=== PATIENT | female | born 1985 | race Caucasian/White ===

== ENCOUNTER 2016-05-23 23:29 | Emergency (ER) | payer OTHER ==
[2016-05-24] MEDS ORDERED: ONDANSETRON 4 MG ORAL DISINTEGRATING TAB (S0181) As Ordered ONE (00:17)
[2016-05-24] MEDS ORDERED: traMADol 50 MG TAB As Ordered ONE (00:17)
--- NOTE | 2016-05-24 00:59 | EDDOCDS ---
Nurse's Notes [facility] Name: Nayla Pereira Age: 30 yrs Sex: Female : 1985 Arrival Date: 05/23/2016 Time: 23:29 Bed Triage 2 Private MD: Diagnosis: Internal derangement of knee Presentation: 05/23 23:37 Presenting complaint: Patient states: Rolled over in bed and "dislocated knee--I popped mcp it back in". Happened about an hour ago. Adult Sepsis Screening: The patient does not have new or worsening altered mentation. Patient's respiratory rate is less than 22. Systolic blood pressure is greater than 100. Patient has a qSOFA score of 0- Negative Sepsis Screen. Suicide/Homicide risk assessment- the patient denies having any suicidal and/or homicidal ideations and does not present with any other emotional, behavioral or mental health complaints. Status: Patient is not a resident service coordinator or dependent. Transition of care: patient was not received from another setting of care. 23:37 Acuity: JANAY Level 4 [facility] 23:37 Method Of Arrival: Walkin/Carried/Asstd [facility] Triage Assessment: 23:39 General: Appears uncomfortable, Behavior is cooperative. Pain: Location: right knee mcp Pain currently is 7 out of 10 on a pain scale. HIV screening NA for this visit Offered previously. Neurological: No deficits noted. Respiratory: Airway is patent Respiratory effort is even, unlabored. Derm: Skin is pink, warm & dry. Musculoskeletal: Circulation, motion, and sensation intact. 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 none - PMHx: none; - PSHx: wrist, left; Tubal ligation(December 25, 2011); - Social history: Smoking status: Patient states was never smoker of tobacco. No barriers to communication noted, The patient speaks fluent Bulgarian. - Family history: Not pertinent. - : The pt / caregiver states he / she is not on anticoagulants. Home medication list is obtained from the patient. - Exposure Risk Screening:: None identified. Screenin/26 00:20 Screening information is obtained from the patient. Fall risk: No risks identified. [facility] Assistance ADL's: requires no assistance with activities of daily living. Abuse/DV Screen: The patient / caregiver reports he/she is: not in a situation that causes fear, pain or injury. Nutritional screening: No deficits noted. Advance Directives: There is no active DNR order. home support is adequate. Assessment: 00:20 General: Appears uncomfortable, Behavior is cooperative. Pain: Location: right knee mcp Pain currently is 7 out of 10 on a pain scale. Neurological: No deficits noted. Respiratory: Airway is patent Respiratory effort is even, unlabored. Derm: Skin is pink, warm & dry. Musculoskeletal: Circulation, motion, and sensation intact. Vital Signs: 05/23 23:31 BP 113 / 65; Pulse 96; Resp 16; Temp 98.0(O); Pulse Ox 99% ; Weight 61.23 kg (R); lr2 Height 5 ft. 5 in. (165.10 cm) (R); Pain 7/10; 23:31 Body Mass Index 22.46 (61.23 kg, 165.10 cm) lr2 Vitals: 23:31 Log In Time: May 23, 2016 at 23:29. lr2 ED Course: 23:31 Patient visited by Kasandra Lynch. lr2 23:31 Patient moved to Waiting lr2 23:33 Patient moved to Pre RCE lr2 23:38 Triage Initiated mcp 23:40 Patient visited by Mariana Schmidt RN. mcp 23:45 Patient moved to Triage 1 [facility] 23:47 Jonatan Jerry [facility]-C [facility] ck7 23:47 Herman Hernandez DO is Attending Physician. ck7 05/24 00:05 Patient visited by Jonatan Jerry RPA-C. ck7 00:19 Patient moved to 8 [facility] [place]:21 Patient visited by Mariana Schmidt RN. mcp 00:21 The patient / caregiver is instructed regarding the plan of care and ED course. Patient mcp has correct armband on for positive identification. Bed in low position. Call light in reach. Adult w/ patient. 00:49 [facility] is Referral Physician. ck7 00:51 Patient moved to Triage 2 mcp 00:57 No IV's were initiated during this patient's visit. No procedures done that require mcp assistance. 00:58 Crutch training done. Knee immobilizer applied on right knee. Patient with positive mcp distal sensation and brisk distal capillary refill after application. Administered Medications: 00:20 Drug: traMADol 50 mg [tramadol 50 mg tablet (1 tabs)] Route: PO; mcp 00:20 Drug: Ondansetron ODT 4 mg [ondansetron 4 mg disintegrating tablet (1 tabs)] Route: PO; [facility] Order Results: There are currently no results for this order. Outcome: 00:49 Discharge ordered by Provider. ck7 00:57 Discharge Assessment: patient administered narcotics - yes. Pt provided with safe mcp discharge. The following High Risk Discharge criteria are identified: None. Discharged to home ambulatory, with crutches. Condition: stable. Discharge instructions given to patient, Instructed on discharge instructions, follow up and referral plans. medication usage, crutch walking, Demonstrated understanding of instructions, crutch walking, medications, Pt was receptive of discharge instructions/ teaching. Prescriptions given X 3. No special radiology studies were completed. Property sent home with patient. 00:58 Patient left the ED. [facility] Signatures: Saray Frederick RN RN km Mariana Schmidt RN RN mcp Kwaczala, Christopher, ABIOLA-C RPA-Cck7 Kasandra Lynch2 KATLYN
--- NOTE | 2016-05-24 00:59 | EDDOCDS ---
Physician Documentation [facility] Name: Nayla Pereira Age: 30 yrs Sex: Female : 1985 Arrival Date: 05/23/2016 Time: 23:29 Bed Triage 2 Private MD: Disposition: 05/24/16 00:49 Discharged to Home/Self Care. Impression: Internal derangement of knee. - Condition is Stable. - Discharge Instructions: Knee Pain. - Prescriptions for Ultram 50 mg Oral Tablet - take 1 tablet by ORAL route every [address] CHUNG MDD: 4 tabs; 20 tablet. ZOFRAN ODT 4 mg - dissolve 1 tablet by ORAL route 4 times per day As needed do not chew, do not swallow whole; 10 tablet. Ibuprofen 600 mg Oral Tablet - take 1 tablet by ORAL route every 6 hours As needed take with food; 30 tablet. - Medication Reconciliation, Local Pharmacy Hours form. - Follow up: [facility]; When: 2 - 3 days; Reason: Recheck today's complaints, Continuance of care. - Problem is new. - Symptoms have improved. - Notes: USE MEDICATIONS INSTRUTCED, FOLLOW UP WITH YOUR DOCTOR, RETURN TO THE ER IF THE SYMPTOMS WORSEN OR BECOME CONCERNING Historical: - Allergies: Codeine Sulfate; - Home Meds: 1. none - PMHx: none; - PSHx: wrist, left; Tubal ligation(December 25, 2011); - Social history: Smoking status: Patient states was never smoker of tobacco. No barriers to communication noted, The patient speaks fluent Kiswahili. - Family history: Not pertinent. - : The pt / caregiver states he / she is not on anticoagulants. Home medication list is obtained from the patient. - Exposure Risk Screening:: None identified. LPC: 05/23 23:39 4, Living 3, LMP 05/03/2016 [facility] Vital Signs: 23:31 BP 113 / 65; Pulse 96; Resp 16; Temp 98.0(O); Pulse Ox 99% ; Weight 61.23 kg / 134.99 lr2 lbs (R); Height 5 ft. 5 in. (165.10 cm) (R); Pain 7/10; 23:31 Body Mass Index 22.46 (61.23 kg, 165.10 cm) lr2 Procedures: 05/24 00:53 Fracture care/splinting: Splint applied to right leg using knee immobilizer, applied by ck7 nurse. Examined by me, post splint application: neurovascular intact, 2+ distal pulses palpable, brisk capillary refill noted, Patient tolerated well. MDM: 00:11 traMADol 50 mg PO once ordered. ck7 00:11 Ondansetron ODT Oral Disintegrating Tablet 4 mg PO once ordered. ck7 00:12 Knee, Complete Ordered. EDMS 00:49 Knee Immobilizer ordered. ck7 00:49 Crutches ordered. ck7 Administered Medications: 00:20 Drug: traMADol 50 mg [tramadol 50 mg tablet (1 tabs)] Route: PO; [facility] 00:20 Drug: Ondansetron ODT 4 mg [ondansetron 4 mg disintegrating tablet (1 tabs)] Route: PO; [facility] Signatures: Dispatcher [employer] Mariana Tracey RN RN Jonatan Ontiveros, RPA-C RPA-Cck7 KATLYN
--- NOTE | 2016-05-24 07:20 | REP ---
Clinical: Trauma. Deformity and swelling Technique: AP, lateral, bilateral oblique views of the right knee . Findings: The osseous structures and joint spaces are intact and normal. There is no evidence for acute fracture or dislocation. No joint effusion is appreciated. Surrounding soft tissues are unremarkable. No subcutaneous emphysema or radiodense foreign body. Impression: Normal examination. No acute fracture or dislocation. Signed by Charly Laguerre MD 05/24/2016 07:11 A
--- NOTE | 2016-05-26 01:59 | EDDOCDS ---
Physician Documentation [facility] Name: Nayla Pereira Age: 30 yrs Sex: Female : 1985 Arrival Date: 05/23/2016 Time: 23:29 Bed Triage 2 Private MD: Disposition: 05/24/16 00:49 Discharged to Home/Self Care. Impression: Internal derangement of knee. - Condition is Stable. - Discharge Instructions: Knee Pain. - Prescriptions for Ultram 50 mg Oral Tablet - take 1 tablet by ORAL route every [address] CHUNG MDD: 4 tabs; 20 tablet. ZOFRAN ODT 4 mg - dissolve 1 tablet by ORAL route 4 times per day As needed do not chew, do not swallow whole; 10 tablet. Ibuprofen 600 mg Oral Tablet - take 1 tablet by ORAL route every 6 hours As needed take with food; 30 tablet. - Medication Reconciliation, Local Pharmacy Hours form. - Follow up: [facility]; When: 2 - 3 days; Reason: Recheck today's complaints, Continuance of care. - Problem is new. - Symptoms have improved. - Notes: USE MEDICATIONS INSTRUTCED, FOLLOW UP WITH YOUR DOCTOR, RETURN TO THE ER IF THE SYMPTOMS WORSEN OR BECOME CONCERNING Historical: - Allergies: Codeine Sulfate; - Home Meds: 1. none - PMHx: none; - PSHx: wrist, left; Tubal ligation(December 25, 2011); - Social history: Smoking status: Patient states was never smoker of tobacco. No barriers to communication noted, The patient speaks fluent Greenlandic. - Family history: Not pertinent. - : The pt / caregiver states he / she is not on anticoagulants. Home medication list is obtained from the patient. - Exposure Risk Screening:: None identified. 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 5 in. (165.10 cm) (R); Pain 7/10; 23:31 Body Mass Index 22.46 (61.23 kg, 165.10 cm) lr2 Procedures: 05/24 00:53 Fracture care/splinting: Splint applied to right leg using knee immobilizer, applied by ck7 nurse. Examined by me, post splint application: neurovascular intact, 2+ distal pulses palpable, brisk capillary refill noted, Patient tolerated well. MDM: 00:11 traMADol 50 mg PO once ordered. ck7 00:11 Ondansetron ODT Oral Disintegrating Tablet 4 mg PO once ordered. ck7 00:12 Knee, Complete Ordered. EDMS 00:49 Knee Immobilizer ordered. ck7 00:49 Crutches ordered. ck7 02:31 [facility] Payment Agreement was scanned into [email or web address] and attached to record. hs2 09:21 T-Sheet-- Draft Copy was scanned into [email or web address] and attached to record. [facility] Administered Medications: 00:20 Drug: traMADol 50 mg [tramadol 50 mg tablet (1 tabs)] Route: PO; mcp 00:20 Drug: Ondansetron ODT 4 mg [ondansetron 4 mg disintegrating tablet (1 tabs)] Route: PO; [facility] Signatures: Dispatcher [employer] EDUT Mariana Schmidt RN RN mcp Jonatan Jerry, RPA-C RPA-Cck7 Josefina Engle, Reg Reg hs2 Faye Dawson [facility] The chart was reviewed and I authenticate all verbal orders and agree with the evaluation and treatment provided.Attachments: 02:31 [facility] Payment Agreement hs2 09:21 T-Sheet-- Draft Copy [facility] Chart Complete MTDD
--- NOTE | 2016-05-26 01:59 | EDDOCDS ---
Nurse's Notes [facility] Name: Nayla Pereira Age: 30 yrs Sex: Female : 1985 Arrival Date: 05/23/2016 Time: 23:29 Bed Triage 2 Private MD: Diagnosis: Internal derangement of knee Presentation: 05/23 23:37 Presenting complaint: Patient states: Rolled over in bed and "dislocated knee--I popped mcp it back in". Happened about an hour ago. Adult Sepsis Screening: The patient does not have new or worsening altered mentation. Patient's respiratory rate is less than 22. Systolic blood pressure is greater than 100. Patient has a qSOFA score of 0- Negative Sepsis Screen. Suicide/Homicide risk assessment- the patient denies having any suicidal and/or homicidal ideations and does not present with any other emotional, behavioral or mental health complaints. Status: Patient is not a account service representative or dependent. Transition of care: patient was not received from another setting of care. 23:37 Acuity: JANAY Level 4 [facility] 23:37 Method Of Arrival: Walkin/Carried/Asstd [facility] Triage Assessment: 23:39 General: Appears uncomfortable, Behavior is cooperative. Pain: Location: right knee mcp Pain currently is 7 out of 10 on a pain scale. HIV screening NA for this visit Offered previously. Neurological: No deficits noted. Respiratory: Airway is patent Respiratory effort is even, unlabored. Derm: Skin is pink, warm & dry. Musculoskeletal: Circulation, motion, and sensation intact. 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 none - PMHx: none; - PSHx: wrist, left; Tubal ligation(December 25, 2011); - Social history: Smoking status: Patient states was never smoker of tobacco. No barriers to communication noted, The patient speaks fluent Tajik. - Family history: Not pertinent. - : The pt / caregiver states he / she is not on anticoagulants. Home medication list is obtained from the patient. - Exposure Risk Screening:: None identified. Screenin/26 00:20 Screening information is obtained from the patient. Fall risk: No risks identified. [facility] Assistance ADL's: requires no assistance with activities of daily living. Abuse/DV Screen: The patient / caregiver reports he/she is: not in a situation that causes fear, pain or injury. Nutritional screening: No deficits noted. Advance Directives: There is no active DNR order. home support is adequate. Assessment: 00:20 General: Appears uncomfortable, Behavior is cooperative. Pain: Location: right knee mcp Pain currently is 7 out of 10 on a pain scale. Neurological: No deficits noted. Respiratory: Airway is patent Respiratory effort is even, unlabored. Derm: Skin is pink, warm & dry. Musculoskeletal: Circulation, motion, and sensation intact. Vital Signs: 05/23 23:31 BP 113 / 65; Pulse 96; Resp 16; Temp 98.0(O); Pulse Ox 99% ; Weight 61.23 kg (R); lr2 Height 5 ft. 5 in. (165.10 cm) (R); Pain 7/10; 23:31 Body Mass Index 22.46 (61.23 kg, 165.10 cm) lr2 Vitals: 23:31 Log In Time: May 23, 2016 at 23:29. lr2 ED Course: 23:31 Patient visited by Kasandra Lynch. lr2 23:31 Patient moved to Waiting lr2 23:33 Patient moved to Pre RCE lr2 23:38 Triage Initiated mcp 23:40 Patient visited by Mariana Schmidt RN. mcp 23:45 Patient moved to Triage 1 [facility] 23:47 Jonatan Jerry RPA-C is [facility]. ck7 23:47 Herman Hernandez DO is Attending Physician. ck7 05/24 00:05 Patient visited by Jonatan Jerry RPA-C. ck7 00:19 Patient moved to TR8 [facility] 00:21 Patient visited by Mariana Schmidt RN. mcp 00:21 The patient / caregiver is instructed regarding the plan of care and ED course. Patient mcp has correct armband on for positive identification. Bed in low position. Call light in reach. Adult w/ patient. 00:49 [facility] is Referral Physician. ck7 00:51 Patient moved to Triage 2 mcp 00:57 No IV's were initiated during this patient's visit. No procedures done that require mcp assistance. 00:58 Crutch training done. Knee immobilizer applied on right knee. Patient with positive mcp distal sensation and brisk distal capillary refill after application. 02:31 [facility] Payment Agreement was scanned into [employer] and attached to record. hs2 02:37 Patient name changed from Nayla\\S\\\\S\\Kelli\\S\\ to Nayla\\S\\Leatha\\S\\Kelli. EDMS 07:30 Knee, Complete Returned. EDMS 09:21 T-Sheet-- Draft Copy was scanned into [employer] and attached to record. [facility] Administered Medications: 00:20 Drug: traMADol 50 mg [tramadol 50 mg tablet (1 tabs)] Route: PO; mcp 00:20 Drug: Ondansetron ODT 4 mg [ondansetron 4 mg disintegrating tablet (1 tabs)] Route: PO; [facility] Order Results: Radiology Order: Knee, Complete Test: Knee, Complete REASON FOR EXAMINATION: Deformity/Swelling; Clinical: Trauma. Deformity and swelling; ; Technique: AP, lateral, bilateral oblique views of the right knee .; ; Findings: The osseous structures and joint spaces are intact and normal. There; is no evidence for acute fracture or dislocation. No joint effusion is; appreciated. Surrounding soft tissues are unremarkable. No subcutaneous; emphysema or radiodense foreign body.; ; Impression:; Normal examination. No acute fracture or dislocation.; ; ; Signed by; Charly Laguerre MD 05/24/2016 07:11 A; Outcome: 00:49 Discharge ordered by Provider. ck7 00:57 Discharge Assessment: patient administered narcotics - yes. Pt provided with safe mcp discharge. The following High Risk Discharge criteria are identified: None. Discharged to home ambulatory, with crutches. Condition: stable. Discharge instructions given to patient, Instructed on discharge instructions, follow up and referral plans. medication usage, crutch walking, Demonstrated understanding of instructions, crutch walking, medications, Pt was receptive of discharge instructions/ teaching. Prescriptions given X 3. No special radiology studies were completed. Property sent home with patient. 00:58 Patient left the ED. [facility] Signatures: Dispatcher [employer] EDKY Saray Frederick RN RN kmMariana Denney RN RN mcp Kwaczala, Christopher, ABIOLA-C RPA-Cck7 Josefina Engle, Reg Reg hs2 Faye Dawson Laura lr2 Chart Complete MTDD
--- NOTE | 2016-05-26 01:59 | EDDOCDS ---
Physician Documentation Name: Nayla Pereira Age: 30 yrs Sex: Female : 1985 Arrival Date: 05/23/2016 Time: 23:29 Bed Triage 2 Private MD: Disposition: 05/24/16 00:49 Discharged to Home/Self Care. Impression: Internal derangement of knee. - Condition is Stable. - Discharge Instructions: Knee Pain. - Prescriptions for Ultram 50 mg Oral Tablet - take 1 tablet by ORAL route every [address] CHUNG MDD: 4 tabs; 20 tablet. ZOFRAN ODT 4 mg - dissolve 1 tablet by ORAL route 4 times per day As needed do not chew, do not swallow whole; 10 tablet. Ibuprofen 600 mg Oral Tablet - take 1 tablet by ORAL route every 6 hours As needed take with food; 30 tablet. - Medication Reconciliation, Local Pharmacy Hours form. - Follow up: [facility]; When: 2 - 3 days; Reason: Recheck today's complaints, Continuance of care. - Problem is new. - Symptoms have improved. - Notes: USE MEDICATIONS INSTRUTCED, FOLLOW UP WITH YOUR DOCTOR, RETURN TO THE ER IF THE SYMPTOMS WORSEN OR BECOME CONCERNING Historical: - Allergies: Codeine Sulfate; - Home Meds: 1. none - PMHx: none; - PSHx: wrist, left; Tubal ligation(December 25, 2011); - Social history: Smoking status: Patient states was never smoker of tobacco. No barriers to communication noted, The patient speaks fluent Latvian. - Family history: Not pertinent. - : The pt / caregiver states he / she is not on anticoagulants. Home medication list is obtained from the patient. - Exposure Risk Screening:: None identified. 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 Vital Signs: 23:31 BP 113 / 65; Pulse 96; Resp 16; Temp 98.0(O); Pulse Ox 99% ; Weight 61.23 kg / 134.99 lr2 lbs (R); Height 5 ft. 5 in. (165.10 cm) (R); Pain 7/10; 23:31 Body Mass Index 22.46 (61.23 kg, 165.10 cm) lr2 Procedures: 05/24 00:53 Fracture care/splinting: Splint applied to right leg using knee immobilizer, applied by ck7 nurse. Examined by me, post splint application: neurovascular intact, 2+ distal pulses palpable, brisk capillary refill noted, Patient tolerated well. MDM: 00:11 traMADol 50 mg PO once ordered. ck7 00:11 Ondansetron ODT Oral Disintegrating Tablet 4 mg PO once ordered. ck7 00:12 Knee, Complete Ordered. EDMS 00:49 Knee Immobilizer ordered. ck7 00:49 Crutches ordered. ck7 02:31 [facility] Payment Agreement was scanned into [employer] and attached to record. hs2 09:21 T-Sheet-- Draft Copy was scanned into [employer] and attached to record. [facility] Administered Medications: 00:20 Drug: traMADol 50 mg [tramadol 50 mg tablet (1 tabs)] Route: PO; mcp 00:20 Drug: Ondansetron ODT 4 mg [ondansetron 4 mg disintegrating tablet (1 tabs)] Route: PO; [facility] Signatures: Dispatcher [employer] EDKS Mariana Schmidt RN RN mcp Jonatan Jerry, RPA-C RPA-Cck7 Josefina Engle, Reg Reg hs2 Faye Dawson [facility] The chart was reviewed and I authenticate all verbal orders and agree with the evaluation and treatment provided.Attachments: 02:31 [facility] Payment Agreement hs2 09:21 T-Sheet-- Draft Copy [facility] Chart Complete MTDD
== END 2016-05-24 00:58 | disposition home or self-care (01) ==
LOC: M ED 23:29
DX: M23.91 Unspecified internal derangement of right knee (principal); Z88.2 Allergy status to sulfonamides; Z88.5 Allergy status to narcotic agent

== ENCOUNTER 2016-07-27 17:16 | Emergency (ER) | payer OTHER, SELFPAY ==
[~2016-07-27] VITALS: Ht 165.1 cm; Wt 61.2 kg
[2016-07-27 17:16] VITALS: BP 128/97
[2016-07-27] MEDS ORDERED: IBUP200C PO (17:28)
[2016-07-27] MEDS ORDERED: AMOX875T PO (17:51)
[2016-07-27] MEDS ORDERED: IBUP600T26 PO (17:51)
[2016-07-27] MEDS ORDERED: ULTR50TA PO (17:51)
== END 2016-07-27 18:14 | disposition home or self-care (01) ==
LOC: M ED 17:57
DX: K02.9 Dental caries, unspecified (principal); Z88.5 Allergy status to narcotic agent

== ENCOUNTER → 2017-05-30 | Outpatient (REF) | payer OTHER | LOC: M SFHCLERA 17:00 | DX: J02.9 Acute pharyngitis, unspecified (principal) ==

== ENCOUNTER 2017-08-29 16:25 | Emergency (ER) | payer OTHER ==
[2017-08-29 17:12] LABS: KETONE, URINE AUTO RFX NEGATIVE (NEGATIVE); LEUKOCYTE ESTERASE UR AUTO RFX 2+ (NEGATIVE); MUCUS, URINE RFX SMALL (NEGATIVE); NITRITE, URINE AUTO RFX NEGATIVE (NEGATIVE); RBC, URINE AUTO RFX 1 /HPF (0-3); SPECIFIC GRAVITY UR AUTO RFX 1.019 (1.002-1.035); SQUAM EPITHELIAL CELL UR AURFX 6 /HPF (0-6); WBC, URINE AUTO RFX 2 /HPF (0-3)
[2017-08-29 17:25] LABS: BASO % 0.3 % (0.0-1.0); EOS # 0.1 10^3/uL (0.0-0.50); EOS % 0.8 % (0.0-3.0); HEMOGLOBIN 12.4 g/dl (12.0-15.5); IMMATURE GRANULOCYTE % 0.4 % (0-3.0); LYMPH # 1.6 10^3/uL (1.5-4.5); LYMPH % 15.2 % (24.0-44.0); MEAN CORPUSCULAR HEMOGLOBIN 30.8 pg (27.0-33.0); MEAN CORPUSCULAR HGB CONC 34.4 g/dl (32.0-36.5); MEAN CORPUSCULAR VOLUME 89.6 fl (80.0-96.0); MONO % 9.6 % (0.0-5.0); NEUTROPHILS # 7.8 10^3/uL (1.8-7.7); NEUTROPHILS % 73.7 % (36.0-66.0); PLATELET COUNT, AUTOMATED 302 10^3/uL (150-450); RED BLOOD COUNT 4.02 10^6/uL (4.00-5.40); RED CELL DISTRIBUTION WIDTH 12.3 % (11.5-14.5); WHITE BLOOD COUNT 10.6 10^3/uL (4.0-10.0)
[2017-08-29] MEDS: ONDANSETRON 4MG/2ML VIAL (J2405) IV (17:37)
[2017-08-29] MEDS: NS 1,000 ML IV (17:38)
[2017-08-29] MEDS: MORPHINE 4 MG/ML 1ML VIAL/SYRINGE (J2270) IV ×2 (17:38→18:31)
[2017-08-29 17:45] LABS: CONTROL LINE HCG INT CTR LINE PRESENT; HCG, SERUM QUALITATIVE NEGATIVE (NEGATIVE)
[2017-08-29 17:57] LABS: ALBUMIN 3.8 GM/DL (3.2-5.2); ALBUMIN/GLOBULIN RATIO 1.12 (1.00-1.93); ALKALINE PHOSPHATASE 29 U/L (45-117); ALT/SGPT 13 U/L (12-78); ANION GAP 7 MEQ/L (8-16); AST/SGOT 13 U/L (7-37); BILIRUBIN,DIRECT 0.1 MG/DL (0.0-0.2); BILIRUBIN,TOTAL 0.3 MG/DL (0.2-1.0); BLOOD UREA NITROGEN 12 MG/DL (7-18); CALCIUM LEVEL 9.1 MG/DL (8.5-10.1); CARBON DIOXIDE LEVEL 24 MEQ/L (21-32); CHLORIDE LEVEL 109 MEQ/L (98-107); CREATININE FOR GFR 0.74 MG/DL (0.55-1.30); GLOMERULAR FILTRATION RATE > 60.0 (>60); GLUCOSE, FASTING 100 MG/DL (70-100); POTASSIUM SERUM 3.9 MEQ/L (3.5-5.1); SODIUM LEVEL 140 MEQ/L (136-145); TOTAL PROTEIN 7.2 GM/DL (6.4-8.2)
[2017-08-29] MEDS ORDERED: ISOVUE-370 76% 100ML VIAL (Q9967) As Ordered (18:09)
[2017-08-29] MEDS: OXYCODONE/APAP 5MG/325MG(BULK FOR ED) 1 TABLET PO (19:57)
== END 2017-08-29 20:00 | disposition home or self-care (01) ==
LOC: M ED 16:25
DX: N83.201 Unspecified ovarian cyst, right side (principal); R11.0 Nausea; Z88.5 Allergy status to narcotic agent
CPT/HCPCS: J2270

== ENCOUNTER 2017-10-03 18:44 | Emergency (ER) | payer OTHER ==
[2017-10-03] MEDS: MORPHINE 4 MG/ML 1ML VIAL/SYRINGE (J2270) IV (19:45)
[2017-10-03] MEDS: ONDANSETRON 4MG/2ML VIAL (J2405) IV (19:45)
[2017-10-03] MEDS: CYCLOBENZAPRINE 10 MG TAB PO (21:26)
[2017-10-03] MEDS: NAPROXEN 250 MG TAB PO (21:26)
== END 2017-10-03 21:29 | disposition home or self-care (01) ==
LOC: M ED 18:44
DX: S66.912A Strain of unspecified muscle, fascia and tendon at wrist and hand level, left hand, initial encounter (principal); S33.5XXA Sprain of ligaments of lumbar spine, initial encounter; S50.02XA Contusion of left elbow, initial encounter; S60.222A Contusion of left hand, initial encounter; V86.95XA Unspecified occupant of 3- or 4- wheeled all-terrain vehicle (ATV) injured in nontraffic accident, initial encounter; Y92.9 Unspecified place or not applicable; Y93.9 Activity, unspecified; Y99.9 Unspecified external cause status; M51.9 Unspecified thoracic, thoracolumbar and lumbosacral intervertebral disc disorder; Z88.5 Allergy status to narcotic agent
CPT/HCPCS: J2270

== ENCOUNTER 2018-02-14 18:24 | Emergency (ER) | payer OTHER | END 2018-02-14 19:40 | disposition home or self-care (01) | LOC: M ED 18:24 | DX: S39.012A Strain of muscle, fascia and tendon of lower back, initial encounter (principal) | CPT/HCPCS: 99282 ==

== ENCOUNTER → 2018-03-14 | Outpatient (REF) | payer OTHER ==
[~2018-03-14] MED LIST: AMOX875T PO; CLIN150C14 PO; CYCL10TA PO; IBUP-1022 PO; IBUP200C25 PO; IBUP80TA PO; NAPR-49 PO; PERC5TAB12 PO; TYLE325T5 PO; ULTR50TA8 PO; ZOFR4TAB14 PO
== END ==
LOC: M SFHCLERA 13:53
PROVIDERS: ATTEND Physician Assistant
DX: N39.0 Urinary tract infection, site not specified (principal)

== ENCOUNTER → 2018-03-23 | Outpatient (REF) | payer OTHER ==
[~2018-03-23] MED LIST changes: -NAPR-49 PO; +NAPR-50 PO
[2018-03-23 10:23] LABS: BASO % 0.4 % (0.0-1.0); EOS # 0.4 10^3/uL (0.0-0.50); HEMATOCRIT 40.3 % (36.0-47.0); HEMOGLOBIN 13.6 g/dl (12.0-15.5); LYMPH # 2.5 10^3/uL (1.5-4.5); LYMPH % 26.5 % (24.0-44.0); MEAN CORPUSCULAR HEMOGLOBIN 30.4 pg (27.0-33.0); MEAN CORPUSCULAR HGB CONC 33.7 g/dl (32.0-36.5); MEAN CORPUSCULAR VOLUME 90.2 fl (80.0-96.0); MONO # 0.8 10^3/uL (0.0-0.8); MONO % 8.4 % (0.0-5.0); NEUTROPHILS # 5.6 10^3/uL (1.8-7.7); NEUTROPHILS % 60.3 % (36.0-66.0); PLATELET COUNT, AUTOMATED 400 10^3/uL (150-450); RED BLOOD COUNT 4.47 10^6/uL (4.00-5.40); WHITE BLOOD COUNT 9.3 10^3/uL (4.0-10.0)
[2018-03-23 10:43] LABS: ALBUMIN 4.1 GM/DL (3.2-5.2); ALT/SGPT 11 U/L (12-78); BILIRUBIN,TOTAL 0.5 MG/DL (0.2-1.0); BLOOD UREA NITROGEN 16 MG/DL (7-18); CALCIUM LEVEL 9.5 MG/DL (8.5-10.1); CARBON DIOXIDE LEVEL 26 MEQ/L (21-32); CHLORIDE LEVEL 107 MEQ/L (98-107); CHOLESTEROL LEVEL 172 MG/DL (<200); CHOLESTEROL RISK RATIO 2.492 (<5); CREATININE FOR GFR 0.85 MG/DL (0.55-1.30); FREE T4 1.17 NG/DL (0.76-1.46); GLOMERULAR FILTRATION RATE > 60.0 (>60); GLUCOSE, FASTING 83 MG/DL (70-100); HDL CHOLESTEROL 69 MG/DL (>40); LDL CHOLESTEROL 90 MG/DL (<100); NON-HDL-C 103 MG/DL; SODIUM LEVEL 140 MEQ/L (136-145); TOTAL PROTEIN 7.7 GM/DL (6.4-8.2); TRIGLYCERIDES LEVEL 65 MG/DL (<150)
== END ==
LOC: M SFHCPLAZ 08:18
PROVIDERS: ATTEND Physician Assistant Medical
DX: Z86.39 Personal history of other endocrine, nutritional and metabolic disease (principal); Z30.9 Encounter for contraceptive management, unspecified; Z13.220 Encounter for screening for lipoid disorders

== ENCOUNTER 2018-03-29 10:24 | Emergency (ER) | payer OTHER ==
[~2018-03-29] VITALS: Ht 162.6 cm; Wt 63.6 kg
[~2018-03-29 10:24] MED LIST changes: -CLIN150C14 PO; -IBUP80TA PO; -ZOFR4TAB14 PO
[2018-03-29] MEDS ORDERED: CLIN150C14 PO (11:34)
[2018-03-29] MEDS ORDERED: IBUP80TA PO (11:34)
[2018-03-29] MEDS ORDERED: ZOFR4TAB14 PO (11:34)
[2018-03-29 11:42] VITALS: BP 117/69
[2018-03-29] MEDS ORDERED: CLINDAMYCIN 150 MG CAP PO ONE (11:45)
[2018-03-29] MEDS ORDERED: ONDANSETRON 4 MG ORAL DISINTEGRATING TAB (Q0162 PER 1MG) PO ONE (11:45)
[2018-03-29] MEDS ORDERED: IBUPROFEN 800 MG TAB PO ONE (11:45)
== END 2018-03-29 11:44 | disposition home or self-care (01) ==
LOC: M ED 10:24
DX: K08.9 Disorder of teeth and supporting structures, unspecified (principal); K04.7 Periapical abscess without sinus
CPT/HCPCS: 99283; Q0162

== ENCOUNTER → 2018-05-10 | Outpatient (REF) | payer OTHER ==
[~2018-05-10] MED LIST changes: +CLIN150C14 PO; +IBUP80TA PO; +ZOFR4TAB14 PO
[2018-05-10 12:43] LABS: AMORPHOUS SEDIMENT SMALL (NEGATIVE); APPEARANCE, URINE CLOUDY (CLEAR); BACTERIA, URINE AUTO 1+ (NEGATIVE); BILIRUBIN, URINE AUTO NEGATIVE (NEGATIVE); BLOOD, URINE BLOOD 1+ (NEGATIVE); CALCIUM OXALATE CRYSTALS SMALL; COLOR, URINE YELLOW (YELLOW); GLUCOSE, URINE (UA) AUTO NEGATIVE (NEGATIVE); KETONE, URINE AUTO NEGATIVE (NEGATIVE); LEUKOCYTE ESTERASE, URINE AUTO 3+ (NEGATIVE); MUCUS, URINE LARGE (NEGATIVE); NITRITE, URINE AUTO NEGATIVE (NEGATIVE); PROTEIN, URINE AUTO 1+ mg/dL (NEGATIVE); RBC, URINE AUTO 9 /HPF (0-3); SPECIFIC GRAVITY URINE AUTO 1.019 (1.002-1.035); SQUAMOUS EPITHELIAL CELL UR AU 21 /HPF (0-6); TRANSITIONAL EPITHELIAL AUTO 1 /HPF; UROBILINOGEN, URINE AUTO 0.2 mg/dL (0.0-2.0); WBC, URINE AUTO TNTC /HPF (0-3)
== END ==
LOC: M SFHCPLAZ 11:44
PROVIDERS: ATTEND Physician Assistant Medical
DX: N39.0 Urinary tract infection, site not specified (principal)

== ENCOUNTER → 2018-09-06 | Outpatient (REF) | payer OTHER ==
[~2018-09-06] MED LIST changes: -NAPR-50 PO; +NAPR-837 PO
[2018-09-06 14:23] LABS: FREE T4 0.94 NG/DL (0.76-1.46); THYROID STIMULATING HORMONE 0.563 uIU/ML (0.358-3.740)
== END ==
LOC: M SFHCPLAZ 09:24
PROVIDERS: ATTEND Physician Assistant Medical
DX: Z86.39 Personal history of other endocrine, nutritional and metabolic disease (principal)

== ENCOUNTER → 2020-04-18 | Outpatient (REF) | payer OTHER ==
[~2020-04-18] MED LIST changes: -CLIN150C14 PO; +CLIN150C15 PO; +CYCL-707 PO; -CYCL10TA PO
[2020-04-18 15:17] LABS: BASO % 0.4 % (0.0-1.0); EOS # 0.1 10^3/uL (0.0-0.5); EOS % 1.8 % (0.0-3.0); HEMOGLOBIN 12.8 g/dl (12.0-15.5); LYMPH # 2.1 10^3/uL (1.5-5.0); MEAN CORPUSCULAR HEMOGLOBIN 30.5 pg (27.0-33.0); MEAN CORPUSCULAR HGB CONC 32.8 g/dl (32.0-36.5); MEAN CORPUSCULAR VOLUME 92.9 fl (80.0-96.0); MONO # 0.5 10^3/uL (0.0-0.8); MONO % 7.2 % (0.0-5.0); NEUTROPHILS % 59.3 % (36.0-66.0); PLATELET COUNT, AUTOMATED 369 10^3/uL (150-450); WHITE BLOOD COUNT 6.8 10^3/uL (4.0-10.0)
[2020-04-18 16:02] LABS: ALBUMIN 4.1 GM/DL (3.2-5.2); ALT/SGPT 16 U/L (12-78); BILIRUBIN,TOTAL 0.3 MG/DL (0.2-1.0); BLOOD UREA NITROGEN 12 MG/DL (7-18); CALCIUM LEVEL 9.7 MG/DL (8.5-10.1); CARBON DIOXIDE LEVEL 28 MEQ/L (21-32); CHLORIDE LEVEL 106 MEQ/L (98-107); CHOLESTEROL LEVEL 175 MG/DL (<200); CHOLESTEROL RISK RATIO 2.083 (<5); CREATININE FOR GFR 0.81 MG/DL (0.55-1.30); FREE T4 0.82 NG/DL (0.76-1.46); GLOMERULAR FILTRATION RATE > 60.0 (>60); GLUCOSE, FASTING 93 MG/DL (70-100); HDL CHOLESTEROL 84 MG/DL (>40); LDL CHOLESTEROL 75 MG/DL (<100); NON-HDL-C 91 MG/DL; POTASSIUM SERUM 3.9 MEQ/L (3.5-5.1); SODIUM LEVEL 141 MEQ/L (136-145); TOTAL PROTEIN 7.1 GM/DL (6.4-8.2); TRIGLYCERIDES LEVEL 82 MG/DL (<150)
== END ==
LOC: M SFHCPLAZ 13:40
PROVIDERS: ATTEND Physician Assistant Medical
DX: Z13.220 Encounter for screening for lipoid disorders (principal); Z86.39 Personal history of other endocrine, nutritional and metabolic disease; Z30.9 Encounter for contraceptive management, unspecified

== ENCOUNTER → 2020-08-14 | Outpatient (REF) | payer OTHER ==
[2020-08-14 17:34] LABS: APPEARANCE, URINE HAZY (CLEAR); BACTERIA, URINE AUTO 1+ (NEGATIVE); BILIRUBIN, URINE AUTO NEGATIVE (NEGATIVE); BLOOD, URINE BLOOD NEGATIVE (NEGATIVE); GLUCOSE, URINE (UA) AUTO NEGATIVE (NEGATIVE); KETONE, URINE AUTO NEGATIVE (NEGATIVE); LEUKOCYTE ESTERASE, URINE AUTO 3+ (NEGATIVE); MUCUS, URINE SMALL (NEGATIVE); NITRITE, URINE AUTO POSITIVE (NEGATIVE); PROTEIN, URINE AUTO NEGATIVE (NEGATIVE); RBC, URINE AUTO 2 /HPF (0-3); SPECIFIC GRAVITY URINE AUTO 1.015 (1.002-1.035); SQUAMOUS EPITHELIAL CELL UR AU 1 /HPF (0-6); WBC, URINE AUTO 50 /HPF (0-3)
[2020-08-14 17:41] LABS: COLOR, URINE DK YELLOW (YELLOW)
== END ==
LOC: M SFHCPLAZ 16:39
PROVIDERS: ATTEND Nurse Practitioner Family
DX: N39.0 Urinary tract infection, site not specified (principal)

== ENCOUNTER → 2021-08-01 | Outpatient (REF) | payer OTHER ==
[~2021-08-01] MED LIST changes: -CLIN150C15 PO; +CLIN150C17 PO
== END ==
LOC: M SFHCPLAZ 12:48
PROVIDERS: ATTEND Physician Assistant
DX: R30.0 Dysuria (principal)

== ENCOUNTER → 2022-01-27 | Outpatient (REF) | payer OTHER | LOC: M SFHCPLAZ 17:18 | PROVIDERS: ATTEND Physician Assistant | DX: R09.89 Other specified symptoms and signs involving the circulatory and respiratory systems (principal) ==

== ENCOUNTER → 2022-02-03 | Outpatient (REF) | payer OTHER ==
[2022-02-03 16:24] LABS: BASO % 0.5 % (0.0-1.0); EOS # 0.1 10^3/uL (0.0-0.5); EOS % 1.3 % (0.0-3.0); HEMOGLOBIN 11.2 g/dl (12.0-15.5); LYMPH # 2.7 10^3/uL (1.5-5.0); LYMPH % 32.6 % (24.0-44.0); MEAN CORPUSCULAR HEMOGLOBIN 30.4 pg (27.0-33.0); MEAN CORPUSCULAR HGB CONC 32.9 g/dl (32.0-36.5); MEAN CORPUSCULAR VOLUME 92.4 fl (80.0-96.0); MONO # 0.5 10^3/uL (0.0-0.8); MONO % 5.8 % (2.0-8.0); NEUTROPHILS # 4.9 10^3/uL (1.5-8.5); NEUTROPHILS % 59.6 % (36.0-66.0); PLATELET COUNT, AUTOMATED 386 10^3/uL (150-450); RED BLOOD COUNT 3.68 10^6/uL (4.00-5.40); WHITE BLOOD COUNT 8.2 10^3/uL (4.0-10.0)
[2022-02-03 17:24] LABS: ALT/SGPT 15 U/L (12-78); BILIRUBIN,TOTAL 0.3 MG/DL (0.2-1.0); BLOOD UREA NITROGEN 11 MG/DL (7-18); CALCIUM LEVEL 9.3 MG/DL (8.5-10.1); CARBON DIOXIDE LEVEL 24 MEQ/L (21-32); CHLORIDE LEVEL 107 MEQ/L (98-107); CHOLESTEROL LEVEL 150 MG/DL (<200); CHOLESTEROL RISK RATIO 2.238 (<5); CREATININE FOR GFR 0.79 MG/DL (0.55-1.30); FREE T4 1.05 NG/DL (0.76-1.46); GLOMERULAR FILTRATION RATE > 60.0 (>60); GLUCOSE, FASTING 102 MG/DL (70-100); HDL CHOLESTEROL 67 MG/DL (>40); LDL CHOLESTEROL 69 MG/DL (<100); NON-HDL-C 83 MG/DL; POTASSIUM SERUM 3.8 MEQ/L (3.5-5.1); SODIUM LEVEL 140 MEQ/L (136-145); TOTAL PROTEIN 7.1 GM/DL (6.4-8.2); TRIGLYCERIDES LEVEL 72 MG/DL (<150)
== END ==
LOC: M LABDRWAD 16:00
PROVIDERS: ATTEND Physician Assistant Medical
DX: N92.0 Excessive and frequent menstruation with regular cycle (principal); Z13.220 Encounter for screening for lipoid disorders; Z86.39 Personal history of other endocrine, nutritional and metabolic disease

== ENCOUNTER → 2022-04-20 | Outpatient (CLI) | payer OTHER ==
[2022-04-20 15:54] LABS: BASO % 0.4 % (0.0-1.0); EOS # 0.1 10^3/uL (0.0-0.5); EOS % 1.7 % (0.0-3.0); HEMATOCRIT 39.4 % (36.0-47.0); HEMOGLOBIN 12.6 g/dl (12.0-15.5); LYMPH # 2.3 10^3/uL (1.5-5.0); LYMPH % 31.5 % (24.0-44.0); MEAN CORPUSCULAR HEMOGLOBIN 30.1 pg (27.0-33.0); MONO # 0.6 10^3/uL (0.0-0.8); NEUTROPHILS # 4.2 10^3/uL (1.5-8.5); NEUTROPHILS % 58.3 % (36.0-66.0); PLATELET COUNT, AUTOMATED 403 10^3/uL (150-450); RED BLOOD COUNT 4.19 10^6/uL (4.00-5.40); WHITE BLOOD COUNT 7.2 10^3/uL (4.0-10.0)
[2022-04-20 16:27] LABS: FERRITIN 11.4 NG/ML (7.3-270.7)
== END ==
LOC: M PLALAB 13:30
PROVIDERS: ATTEND Physician Assistant Medical
DX: N92.0 Excessive and frequent menstruation with regular cycle (principal)

== ENCOUNTER → 2023-04-26 | Outpatient (REF) | payer OTHER ==
[2023-04-26 18:27] LABS: BASO % 0.5 % (0.0-1.0); EOS # 0.1 10^3/uL (0.0-0.5); EOS % 0.9 % (0.0-3.0); HEMATOCRIT 38.3 % (36.0-47.0); HEMOGLOBIN 12.8 g/dl (12.0-15.5); LYMPH # 2.4 10^3/uL (1.5-5.0); LYMPH % 31.8 % (24.0-44.0); MEAN CORPUSCULAR HEMOGLOBIN 30.9 pg (27.0-33.0); MEAN CORPUSCULAR HGB CONC 33.4 g/dl (32.0-36.5); MEAN CORPUSCULAR VOLUME 92.5 fl (80.0-96.0); MONO # 0.5 10^3/uL (0.0-0.8); MONO % 6.9 % (2.0-8.0); NEUTROPHILS # 4.6 10^3/uL (1.5-8.5); NEUTROPHILS % 59.6 % (36.0-66.0); PLATELET COUNT, AUTOMATED 390 10^3/uL (150-450); RED BLOOD COUNT 4.14 10^6/uL (4.00-5.40); WHITE BLOOD COUNT 7.7 10^3/uL (4.0-10.0)
[2023-04-26 18:56] LABS: ALKALINE PHOSPHATASE 29 U/L (46-116); ALT/SGPT < 9 U/L (7.0-40); AST/SGOT 16 U/L (<34); BILIRUBIN,TOTAL 0.4 MG/DL (0.3-1.2); BLOOD UREA NITROGEN 12 MG/DL (9-23); CALCIUM LEVEL 9.3 MG/DL (8.5-10.1); CARBON DIOXIDE LEVEL 26 MMOL/L (20-31); CHLORIDE LEVEL 107 MMOL/L (98-107); CREATININE FOR GFR 0.71 MG/DL (0.55-1.30); GLOMERULAR FILTRATION RATE > 60.0 (>60); GLUCOSE, FASTING 96 MG/DL (60-100); IRON (FE) 79 UG/DL (50-170); POTASSIUM SERUM 3.8 MMOL/L (3.5-5.1); SODIUM LEVEL 140 MMOL/L (136-145)
[2023-04-26 18:59] LABS: FERRITIN 7.5 NG/ML (7.3-270.7); FREE T4 0.99 NG/DL (0.89-1.76); THYROID STIMULATING HORMONE 1.624 uIU/ML (0.55-4.78)
== END ==
LOC: M LABDRAWP 17:46
PROVIDERS: ATTEND Physician Assistant Medical
DX: Z86.39 Personal history of other endocrine, nutritional and metabolic disease (principal); E61.1 Iron deficiency; F32.89 Other specified depressive episodes

== ENCOUNTER → 2023-06-04 | Outpatient (REF) | payer OTHER | LOC: M SFHCADAM 12:46 | PROVIDERS: ATTEND Physician Assistant | DX: N30.01 Acute cystitis with hematuria (principal) ==